=== PATIENT | female | born 1995 | race African-American/Black ===

== ENCOUNTER 2020-08-05 17:20 | Emergency (ER) | payer MEDICAID, SELFPAY ==
[~2020-08-05] VITALS: Ht 160 cm; Wt 76.8 kg
[2020-08-05 17:26] VITALS: BP 157/108
[2020-08-05] MEDS ORDERED: IBUPROFEN 400 MG TAB PO ONE (17:30)
[2020-08-05] MEDS ORDERED: PROAAER10 INH (17:30)
--- NOTE | 2020-08-05 19:43 | REP ---
INDICATION: TRAUMA COMPARISON: None. TECHNIQUE: AP, lateral, bilateral oblique views left foot. FINDINGS: The osseous structures and joint spaces are intact and normal. There is no evidence for acute fracture or dislocation. Surrounding soft tissues are unremarkable. No subcutaneous emphysema or radiodense foreign body. IMPRESSION: . No acute fracture or dislocation. <Electronically signed by Fuentes Braxton > 08/05/20 193
== END 2020-08-05 18:22 | disposition home or self-care (01) ==
LOC: M ED 17:20
DX: S90.112A Contusion of left great toe without damage to nail, initial encounter (principal); W22.8XXA Striking against or struck by other objects, initial encounter; Y92.099 Unspecified place in other non-institutional residence as the place of occurrence of the external cause; Y93.9 Activity, unspecified; Y99.9 Unspecified external cause status

== ENCOUNTER → 2020-09-27 | Outpatient (CLI) | payer SELFPAY ==
[~2020-09-27] MED LIST: PROAAER10 INH
== END ==
LOC: M LABSMTC 12:21
PROVIDERS: ATTEND Pediatrics
DX: Z11.52 Encounter for screening for COVID-19 (principal)